=== PATIENT | male | born 1980 | race Asian ===

== ENCOUNTER 2020-02-01 15:05 | Inpatient (IN) | payer BC ==
[~2020-02-01] VITALS: Ht 167.6 cm; Wt 80.9 kg
--- NOTE | 2020-02-01 16:00 | NUR ---
PT C/O SUPRAPUBIC PAIN, INCREASED WHEN URINATING. DENIES FLANK PAIN. PT HR IN 130s, PT DENIES CP, SOB. PT AMBULATED TO RESTROOM WITH STEADY GAIT TO PROVIDE URINE SAMPLE. UA ORDERED PER PROTOCOL AND TAKEN TO LAB. PT CONNECTED TO MONITORING. CALL LIGHT IN REACH.
[2020-02-01 16:21] LABS: MICROSCOPIC AUTO
[2020-02-01] MEDS ORDERED: SODIUM CHLORIDE FLUSH 10ML SYR IVF ONE (16:30)
[2020-02-01] MEDS ORDERED: SODIUM CHLORIDE 0.9% 1,000ML IVBOLUS ONE ×3 (16:30→18:30)
[2020-02-01] MEDS ORDERED: ACETAMINOPHEN 500 MG TABLET PO ONE (16:30)
[2020-02-01] MEDS ORDERED: ACETAMINOPHEN 500 MG TABLET ONE (16:40)
--- NOTE | 2020-02-01 17:00 | NUR ---
PIV PLACED BY TASK RN. LABS AND 2 SETS BLOOD CX COLLECTED BY LAB. IVF RUNNING, VOICE NETWORK ENGINEER PER APR. PT RESTING COMFORTABLY ON GURNEY. NADN. HR IN 120s, DENIES CP.
[2020-02-01 17:03] LABS: BASOPHILS % (AUTO) 1 % (0-1); EOSINOPHILS % (AUTO) 0 % (1-7); LYMPHOCYTES % (AUTO) 9 % (22-44); MEAN CORPUSCULAR HEMOGLOBIN 22.2 pg (27.5-34.5); MEAN CORPUSCULAR HGB CONC 31.8 g/dL (33.2-36.2); MEAN PLATELET VOLUME 8.4 fL (7.4-10.4); MONOCYTES % (AUTO) 10 % (2-9); NEUTROPHILS % (AUTO) 80 % (42-75); PLATELET COUNT 237 x10^3/uL (130-400); RED BLOOD COUNT 6.85 x10^6/uL (4.38-5.82); RED CELL DISTRIBUTION WIDTH 15.5 % (9.4-14.8)
[2020-02-01 17:13] LABS: ALANINE AMINOTRANSFERASE 73 U/L (12-78); ALBUMIN 4.2 g/dL (3.4-5.0); ANION GAP 6 mmol/L (5-15); CALCIUM 11.2 mg/dL (8.5-10.1); CHLORIDE 100 mmol/L (98-107); CREATININE 1.32 mg/dL (0.7-1.3)
[2020-02-01 17:15] LABS: ALKALINE PHOSPHATASE 79 U/L (45-117); BILIRUBIN,TOTAL 1.2 mg/dL (0.2-1.0); TOTAL PROTEIN 8.9 g/dL (6.4-8.2)
[2020-02-01 17:25] LABS: MD SCAN
[2020-02-01] MEDS ORDERED: OMNIPAQUE 350 MG/ML, 100ML BOTTLE ONE (17:30)
[2020-02-01] MEDS ORDERED: METRONIDAZOLE PMX 500MG/100ML 100 ML ONE (18:02)
[2020-02-01] MEDS ORDERED: METRONIDAZOLE PMX 500MG/100ML 100 ML IV ONE (18:30)
--- NOTE | 2020-02-01 19:16 | NUR ---
HOSPITALIST AT BEDSIDE.
[2020-02-01] MEDS ORDERED: CEFOTETAN PMX 1GM/50ML 50 ML IVPB ONE (20:00)
[2020-02-01] MEDS ORDERED: LABETALOL 5MG/ML, 20ML IVPush PRN (21:00)
[2020-02-01] MEDS ORDERED: DOCUSATE 100 MG CAPSULE PO PRN (21:00)
[2020-02-01] MEDS ORDERED: ACETAMINOPHEN 325 MG TABLET PO PRN (21:00)
[2020-02-01] MEDS ORDERED: HYDROmorphone 2 MG/ML, 1ML IVPush PRN (21:00)
[2020-02-01] MEDS ORDERED: LIDODERM 5% PATCH TD PRN (21:00)
[2020-02-01] MEDS ORDERED: ONDANSETRON 2MG/ML, 2ML IVPush PRN (21:00)
[2020-02-01] MEDS ORDERED: MELATONIN 5 MG TABLET PO PRN (21:00)
--- NOTE | 2020-02-01 22:17 | NUR ---
PT MEDICATED FOR 5/10 PAIN. PT PROVIDED WATER AND WARM BLANKET. DENIES FURTHER NEEDS AT THIS TIME.
--- NOTE | 2020-02-01 23:15 | NUR ---
REPORT GIVEN TO ORTIZ VARELA. RTG RM [id number]
[2020-02-01 23:56] VITALS: BP 110/71
[2020-02-02] MEDS: SODIUM CHLORIDE 0.9% 1,000 ML IV SCH ×4 (00:22→18:30)
[2020-02-02 00:23] LABS: PROTHROMBIN TIME 10.6 Seconds (9.6-11.5)
[2020-02-02] MEDS: METRONIDAZOLE PMX 500MG/100ML 100 ML IV SCH ×3 (02:06→18:37)
[2020-02-02 05:46] LABS: BASOPHILS % (AUTO) 1 % (0-1); EOSINOPHILS % (AUTO) 0 % (1-7); LYMPHOCYTES % (AUTO) 12 % (22-44); MEAN CORPUSCULAR HEMOGLOBIN 22.1 pg (27.5-34.5); MEAN CORPUSCULAR HGB CONC 31.5 g/dL (33.2-36.2); MEAN PLATELET VOLUME 8.4 fL (7.4-10.4); MONOCYTES % (AUTO) 12 % (2-9); NEUTROPHILS % (AUTO) 76 % (42-75); PLATELET COUNT 210 x10^3/uL (130-400); RED BLOOD COUNT 6.08 x10^6/uL (4.38-5.82); RED CELL DISTRIBUTION WIDTH 15.7 % (9.4-14.8)
[2020-02-02 05:53] LABS: ANION GAP 5 mmol/L (5-15); CALCIUM 9.4 mg/dL (8.5-10.1); CHLORIDE 103 mmol/L (98-107); CREATININE 1.21 mg/dL (0.7-1.3)
[2020-02-02 06:04] LABS: MD NO
[2020-02-02 08:00] VITALS: BP 121/72
[2020-02-02] MEDS: CEFTRIAXONE PMX 1GM/50ML 50 ML IV SCH (09:08)
[2020-02-02 18:52] VITALS: BP 137/79
[2020-02-03 02:19] VITALS: BP 132/73
[2020-02-03] MEDS: SODIUM CHLORIDE 0.9% 1,000 ML IV SCH (03:07)
[2020-02-03] MEDS: METRONIDAZOLE PMX 500MG/100ML 100 ML IV SCH ×2 (03:07→11:00)
[2020-02-03 06:12] LABS: BASOPHILS % (AUTO) 1 % (0-1); EOSINOPHILS % (AUTO) 1 % (1-7); LYMPHOCYTES % (AUTO) 19 % (22-44); MEAN CORPUSCULAR HGB CONC 31.1 g/dL (33.2-36.2); MEAN PLATELET VOLUME 8.3 fL (7.4-10.4); MONOCYTES % (AUTO) 9 % (2-9); NEUTROPHILS % (AUTO) 70 % (42-75); PLATELET COUNT 203 x10^3/uL (130-400); RED BLOOD COUNT 5.86 x10^6/uL (4.38-5.82); RED CELL DISTRIBUTION WIDTH 15.5 % (9.4-14.8)
[2020-02-03 06:20] LABS: ALBUMIN 3.4 g/dL (3.4-5.0); ANION GAP 6 mmol/L (5-15); CALCIUM 8.6 mg/dL (8.5-10.1); CHLORIDE 106 mmol/L (98-107)
[2020-02-03 06:24] LABS: ALANINE AMINOTRANSFERASE 44 U/L (12-78); ALKALINE PHOSPHATASE 76 U/L (45-117); BILIRUBIN,TOTAL 0.7 mg/dL (0.2-1.0); CREATININE 1.11 mg/dL (0.7-1.3); TOTAL PROTEIN 7.7 g/dL (6.4-8.2)
[2020-02-03 06:30] LABS: MD NO
[2020-02-03 08:00] VITALS: BP 120/79
[2020-02-03] MEDS: CEFTRIAXONE PMX 1GM/50ML 50 ML IV SCH (09:30)
[2020-02-03] MEDS ORDERED: CIPR500T87 PO (14:28)
[2020-02-03] MEDS ORDERED: METR500T PO (14:28)
== END 2020-02-03 16:30 | disposition home or self-care (01) | DRG 872 ==
LOC: ED 18:44 → EDIP 18:55 → 5SO 23:53 → DCLOUNGE 02-03 16:19
PROVIDERS: ADMIT Internal Medicine; ATTEND Family Medicine
DX: A41.9 Sepsis, unspecified organism (principal); E87.1 Hypo-osmolality and hyponatremia; K57.32 Diverticulitis of large intestine without perforation or abscess without bleeding; N17.9 Acute kidney failure, unspecified; E86.0 Dehydration; R73.9 Hyperglycemia, unspecified; E80.6 Other disorders of bilirubin metabolism; Z79.899 Other long term (current) drug therapy
CPT/HCPCS: 36415; 71045; 74177; 80048; 80053; 81001; 83605; 83735; 84100; 85025; 85610; 87040; 93005; G0378; J0696; Q9967; J7030